=== PATIENT | male | born 1975 | race Two or more races ===

== ENCOUNTER 2025-03-14 10:31 | Emergency (ER) | payer OTHER ==
[~2025-03-14] VITALS: Ht 165.1 cm; Wt 66.7 kg
[2025-03-14 10:45] VITALS: TEMP 98.2
[2025-03-14 11:10] VITALS: BP 128/76; O2SAT 97
== END 2025-03-14 11:11 | disposition home or self-care (01) ==
LOC: ER 10:43
DX: S71.132A Puncture wound without foreign body, left thigh, initial encounter (principal); F17.200 Nicotine dependence, unspecified, uncomplicated; Z60.2 Problems related to living alone; Z65.3 Problems related to other legal circumstances; W34.09XA Accidental discharge from other specified firearms, initial encounter; Y93.89 Activity, other specified; Y92.89 Other specified places as the place of occurrence of the external cause; Y99.8 Other external cause status